=== PATIENT | female | born 1995 | race Caucasian/White ===

== ENCOUNTER 2025-02-04 23:48 | Emergency (ER) | payer MEDICAID ==
[~2025-02-04] VITALS: Ht 175.3 cm; Wt 70.5 kg
[2025-02-04 23:50] VITALS: BP 121/62; PULSE 67; RESP 16; TEMP 98.5; O2SAT 99
[2025-02-05 00:34] LABS: PLATELET COUNT (AUTO) 262 K/uL (150-450); RED BLOOD CELL COUNT(AUTO) 4.33 MIL/uL (4.00-5.20); RED CELL DISTRIBUTION WIDTH 12.6 % (11.5-14.5); WHITE BLOOD COUNT (AUTO) 9.0 K/uL (4.5-11.0)
[2025-02-05 00:45] LABS: CALCIUM, TOTAL 9.1 mg/dL (8.8-10.5); CREATININE 1.00 mg/dL (0.60-1.30); GLOMERULAR FILTR. RATE CALC > 60 mL/min (>60); GLUCOSE,RANDOM 106 mg/dL (70-110); SODIUM SERUM 138 mmol/L (136-145); UREA NITROGEN, BLOOD 18 mg/dL (7-18)
== END 2025-02-05 03:01 | disposition home or self-care (01) ==
LOC: EMS 23:48
DX: Z11.1 Encounter for screening for respiratory tuberculosis (principal); Z88.1 Allergy status to other antibiotic agents
CPT/HCPCS: 71045; 80048; 85025; 99284; 36415-L1; 36415-TC